=== PATIENT | male | born 1995 | race Two or more races ===

== ENCOUNTER 2020-09-20 19:56 | Emergency (ER) | payer BC ==
[~2020-09-20] VITALS: Ht 177.8 cm; Wt 99.8 kg
[2020-09-20] MEDS ORDERED: FLUORESCEIN SOD 1 MG TEST STRIP RIGHTEYE ONE (21:45)
[2020-09-20] MEDS ORDERED: TETRACAINE HCL 0.5% OPTH(EYE) SOLN 4ML EACHEYE ONE (21:45)
[2020-09-20 23:50] VITALS: BP 145/98
== END 2020-09-20 23:46 | disposition home or self-care (01) ==
LOC: ER 20:08
DX: H10.31 Unspecified acute conjunctivitis, right eye (principal)